=== PATIENT | female | born 1965 | race Caucasian/White ===

== ENCOUNTER → 2020-10-16 | Outpatient (CLI) | payer BC, OTHER ==
[~2020-10-16] MED LIST: ATORVASTATIN CA10 MG PO; AUGMENTIN 875-1 EACH PO; LISINOPRIL10 MG PO; PLAVIX 75 MG TA75 MG PO; ZOFRAN4 MG PO
== END ==
LOC: RAD 10:37
DX: M54.6 Pain in thoracic spine (principal); M51.36 Other intervertebral disc degeneration, lumbar region
CPT/HCPCS: 72072; 72100

== ENCOUNTER 2020-12-30 12:41 | Emergency (ER) | payer BC ==
[2020-12-30 14:44] LABS: RED BLOOD COUNT 4.83 M/UL (4.00-5.10); WHITE BLOOD COUNT 9.5 K/UL (4.5-11.0)
[2020-12-30 15:17] LABS: BUN/CREATININE RATIO 19 (0-10)
[2020-12-31 16:15] LABS: LYME IGG/IGM AB <0.91 ISR (0.00-0.90)
[2021-01-01 17:09] LABS: E. CHAFFEENSIS (HME) IGG TITER Negative (Neg:<1:64); E. CHAFFEENSIS (HME) IGM TITER Negative (Neg:<1:20)
[2021-01-02 08:14] LABS: A. PHAGOCYTOPHILUM PCR Negative (Negative); EHRLICHIA CHAFFEENSIS PCR Negative (Negative)
== END 2020-12-30 17:19 | disposition home or self-care (01) ==
LOC: ER1 12:41
PROVIDERS: Nurse Practitioner
DX: M62.838 Other muscle spasm (principal); E78.5 Hyperlipidemia, unspecified; I10 Essential (primary) hypertension; Z87.442 Personal history of urinary calculi; Z90.710 Acquired absence of both cervix and uterus; Z79.02 Long term (current) use of antithrombotics/antiplatelets; Z79.899 Other long term (current) drug therapy; Z20.822 Contact with and (suspected) exposure to COVID-19
CPT/HCPCS: 0240U; 12001; 70450; 72125; 80053; 80307; 81001; 82550; 82553; 83605; 83874; 84484; 85025; 85610; 86618; 86666; 86757; 87798; 99284